=== PATIENT | female | born 1955 | race Caucasian/White ===

== ENCOUNTER 2016-08-22 02:34 | Inpatient (IN) ==
[2016-08-22] MEDS ORDERED: Naloxone 0.4 MG/ML INJ IVP PRN (05:19)
[2016-08-22] MEDS ORDERED: Acetaminophen 325 MG TABLET PO PRN (05:19)
[2016-08-22] MEDS ORDERED: Ondansetron 4 MG/2 ML VIAL IVP PRN (05:19)
[2016-08-22] MEDS ORDERED: *HR* Morphine 2 MG/ML SYRINGE IVP PRN (05:19)
[2016-08-22] MEDS ORDERED: Ipratropium/Albuterol Neb 3 ML IH SCH (05:30)
--- NOTE | 2016-08-22 05:41 | Internal Med History&Physical ---
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 Do not increase faster than 0.5 mEq per hour of sodium levels or more than 9 mEq in 24 hours Seizure, aspiration and fall precautions Send, TSH, cortisol, chest x-ray Order CK and lactic acid Cannot use desmopressin as psychogenic polydipsia is suspected Fluid restriction of 800 mL per day Omeprazole for GI prophylaxis and subcutaneous heparin for DVT prophylaxis. The patient will be admitted as inpatient, expected to stay more than 2 midnights. Full code. Time spent on this critical care assessment 40 minutes. High risk due to severe hyponatremia (2) Tobacco abuse Current visit: Yes Status: Acute Smoking cessation counseling given for 5 minutes. Nicotine patch (3) Bipolar 1 disorder Current visit: Yes Status: Acute Continue Lamictal, hold Invega as it can predispose to seizures (4) Leukocytosis Current visit: Yes Status: Acute Qualifiers: Leukocytosis type: unspecified Qualified Code(s): D72.829 - Elevated white blood cell count, unspecified (5) Generalized seizure Current visit: No Status: Acute Secondary to hyponatremia Internal Medicine - H&P: HPI Chief complaint: Low sodium and seizures Admitted From: Emergency Dept History of present illness: Ms. Roy is a 61 year old female with a past medical history of hyponatremia and seizures as a result of hyponatremia, hypertension, schizophrenia, bipolar disorder, tobacco use, COPD oxygen dependent went to [facility] emergency room after she had a seizure at home. The patient mentions that the seizure was not witnessed but she was found by her daughter. At [facility] the patient received a bolus of normal saline 1000 mL after finding out that her sodium was 110. No central line was placed and the patient was sent to the ICU at this hospital. White blood cell count was 11.5 chloride 74 glucose 139. The patient says that these happened last night at 7 PM, mentions that she drinks 2 L of T every day and does not eat much sodium on a daily basis. Actually she drank more than a liter of T in less than 2 hours last night right before these happened. Her CT of the head shows global brain atrophy with severe chronic small vessel ischemic disease and no hemorrhages. The patient is back to her baseline right now. Urine appears extremely clear, she is well hydrated and denies any pain, denies any incontinence or biting her tongue. Denies any muscle pain, denies taking any diuretic. Past Med Surg Social Fam HX - Past Medical History Medical history: COPD (Oxygen dependent), hypertension, seizures (Secondary to hyponatremia), other (Depression, schizophrenia, hyperlipidemia, tobacco use, bipolar disorder, multiple personalities, panic attacks and suicidal ideation in the past) - Past Surgical History Surgical History: other (Bladder tack, ablation) - Social History Smoking Status: Current every day smoker Packs per day: 1 Alcohol use: none Drug use: none - Additional Family History Additional family history: Father with myocardial infarction in his 60s Internal Medicine - H&P: Meds Lisinopril [Zestril] 10 mg PO DAILY 08/22/16 [History] Paliperidone [Invega] 12 mg PO DAILY 08/22/16 [History] lamoTRIgine [Lamictal Xr] 50 mg PO DAILY 08/22/16 [History] Allergies atorvastatin [From Lipitor] Allergy (Verified 08/22/16 00:38) See Comments unsure of reaction, states is allergic bupropion [From Wellbutrin] Allergy (Verified 08/22/16 00:38) Rash All Systems PM: A 10-system review of systems was performed and is negative for pertinent findings except as documented above in the HPI. Review of systems: Other systems out of the tent reviewed were negative - Head Head exam: Present: atraumatic, normocephalic - Eye Eye exam: Present: PERRL, conjuntiva pink, sclera anicteric Pupils: Present: PERRL - Neck Neck exam general surgery: Present: supple, trachea midline. Absent: lymphadenopathy - Respiratory Respiratory exam: Present: CTAB, rales (Bibasilar crackles). Absent: accessory muscle use, rhonchi, wheezes - Cardiovascular Cardiovascular exam: Present: RRR, +S1, +S2. Absent: diastolic murmur, gallop, rubs, systolic murmur - GI/Abdominal GI/Abdominal exam: Present: normal bowel sounds, soft, no peritoneal signs. Absent: distended, tenderness - Extremities Exam Extremities exam: Present: warm, radial pulses palpable and symetrical. Absent : calf tenderness, cyanotic, pedal edema - Neurological Exam Neurological exam: Present: CN II-XII intact, oriented X3, no focal deficits. Absent: pronater drift, facial droop, speech deficit - Skin Skin exam: Present: dry, intact Internal Med - H&P Results - Labs Labs: White blood cell count 11.5 hemoglobin 13.4 platelets 184 sodium 110 potassium 4.5 chloride 74 CO2 26 BUN 7 creatinine 0.89
[2016-08-22 05:55] LABS: Sodium, Urine < 20.0 mEq/L
[2016-08-22 05:57] LABS: Uric Acid 2.5 mg/dL (2.6-6.0)
[2016-08-22 06:18] LABS: Thyroid Stimulating Hormone 0.409 mcIU/mL (0.350-4.840)
[2016-08-22] MEDS ORDERED: D5% in Water 1,000 ML IVC ONE (06:22)
[2016-08-22] MEDS ORDERED: D5% in Water 1,000 ML IVC SCH (06:30)
[2016-08-22 06:31] LABS: Osmolality,Urine 53 mOsm/kg (300-1090)
--- NOTE | 2016-08-22 07:41 | Pulmonology Progress Note ---
<MarquezMaria Luz - Last Filed: 08/22/16 12:55> Date of Encounter: 08/22/16 Time of Encounter: 07:00 Assessment and Plan (1) Hyponatremia with excess extracellular fluid volume Current Visit: Yes Status: Acute Patient presented with Na of 110 and seizure secondary to hyponatremia Repeat Na at 05:00 was 117 and second repeat Na at 07:00 was 119 Monitor Na every 4 hours Continue D5W at 50ml/hr Fluid restriction of 800ml per day Patient reportedly has history of chronic hyponatremia We suspect psychogenic polydypsia Patient's random cortisol was 7.1 Urine osmolality 53 and urine sodium less than 20 ASSOCIATE GENETICS PROFESSOR: CT head demonstrated global brain atrophy and severe chronic small vessel ischemic disease. No evidence of hemorrhage. Seizure disorder-will continue with seizure precautions. Schizophrenia/Bipolar I-continue Lamictal 200mg qhs. Will hold Paliperidone given that it may cause seizure activity. Pulm: COPD-patient does have diffuse wheezing on exam. Continue treatment with supplemental O2, duonebs Q4HR, albuterol nebs Q4HR, Symbicort BID. Patient has hacking cough, will discontinue lisinopril. Cardiac: Patient hypertensive and tachycardic. Start metoprolol 12.5mg BID. Also, prn Lopressor and prn Hydralazine are ordered. Will avoid diuretics given that patient has hyponatremia and sodium has increased 9mEq/L in first six hours of her hospital stay. Stop lisinopril due to dry, hacking cough. GI/Fluids/Electrolytes/Hydration: Hyponatremia at 110 on admission, increased to 119 in six hours. Patient has been receiving D5W at 50mL/hr to prevent correction of sodium too quickly. Will discontinue D5W. Will continue Sodium checks every 6 hours. GI prophylaxis: Pepsid 20mg BID Renal: Renal function stable, Cr 0.89 ID: Leukocytosis of 11.5. No evidence of source of infection. Patient afebrile. Heme/Onc: Mild leukocytosis, continue to monitor Endocrine: Hyperglycemia with glucose of 167. Start Low-dose SS insulin, continue to monitor blood glucose Lines: All lines checked and without evidence of infection Skin: skin care to prevent pressure ulcers per nursing routine care Patient will transfer to [facility]. (2) Generalized seizure Current Visit: No Status: Acute Seizure secondary to hyponatremia Hold Paliperidone due to the risk of precipitating seizures Continue seizure, fall, and aspiration precautions (3) Leukocytosis Current Visit: Yes Status: Acute WBC 11.5 Patient afebrile Continue to monitor Qualifiers: Leukocytosis type: unspecified Qualified Code(s): D72.829 - Elevated white blood cell count, unspecified (4) COPD (chronic obstructive pulmonary disease) Current Visit: Yes Status: Acute Patient with COPD and oxygen dependent O2 saturation 98% on 2L Continue supplemental O2 Continue Duonebs IH, Albuterol IH, Symbicort BID Qualifiers: COPD type: unspecified COPD Qualified Code(s): J44.9 - Chronic obstructive pulmonary disease, unspecified (5) Cough Current Visit: Yes Status: Acute Patient has chronic dry hacking cough Lisinopril has been discontinued due to fact that this may be PARISH-inhibitor induced cough Guaifenesin with codeine for symptomatic relief (6) Schizophrenia Current Visit: Yes Status: Acute History of schizophrenia Continue Lamictal Continue to hold Paliperidone Qualifiers: Schizophrenia type: unspecified Qualified Code(s): F20.9 - Schizophrenia, unspecified (7) Bipolar 1 disorder Current Visit: Yes Status: Acute Continue home medication of Lamictal Hold Paliperidone (8) Tobacco abuse Current Visit: Yes Status: Acute Nicotine Patch (9) DVT prophylaxis Current Visit: Yes Status: Acute Heparin 8,000units SQ Subjective Principal diagnosis: Hyponatremia, Seizure Interval history: Patient admitted for hyponatremia with unwitnessed seizure secondary to hyponatremia. She states that she has had 8 prior such episodes. Objective PUL Vital signs: Last Vital Signs Temp 98.3 F 08/22/16 05:06 Pulse 97 08/22/16 06:00 Resp 20 08/22/16 06:00 BP 150/87 08/22/16 06:00 Pulse Ox 98 08/22/16 06:00 General appearance: no acute distress, other (chronic dry hacking cough) Eyes: nonicteric ENT: oropharynx moist Neck: supple, bruit (bilateral carotid bruit) Effort: mildly labored Auscultation: bilateral: wheezes (diffuse sonorous wheezing in all lung osman) Cardiovascular: other (Tachycardia at a rate of 100-115, Regular rhythm, No murmur appreciated) Gastrointestinal: normoactive bowel sounds, non-tender Integumentary: normal Extremities: no cyanosis, no edema, pulses normal Musculoskeletal: other (barrel chest, kyphotic thoracic spine) normal mental status, CN II-XII normal mood appropriate, affect normal Results - Laboratory Findings CBC and BMP: 08/22/16 10:54 Abnormal lab findings: Abnormal lab results Sodium 119 mEq/L (136-145) L* 08/22/16 06:57 POC Glucose 159 (58-89) H 08/22/16 05:07 Lactic Acid 2.8 mmol/L (0.5-2.2) H 08/22/16 05:34 Uric Acid 2.5 mg/dL (2.6-6.0) L 08/22/16 05:34 Creatine Kinase 632 Units/L (29-168) H 08/22/16 05:34 Urine Osmolality 53 mOsm/kg (300-1090) L 08/22/16 05:08 - Diagnostic Findings Chest x-ray: report reviewed, image reviewed - Clinical Findings Intake & Output: Intake & Output 08/21/16 08/21/16 08/22/16 15:59 23:59 07:59 Output Total 1400 / 1400 Balance -1400 / -1400 Weight 66.5 kg Consult Discharge Plan - Plan Referrals: Unassigned,Provider [Non-Partnered Physician] - <Lalo Campbell - Last Filed: 08/22/16 13:06> Date of Encounter: 08/22/16 Objective PUL Vital signs: Last Vital Signs Temp 98.1 F 08/22/16 12:54 Pulse 91 08/22/16 12:54 Resp 16 08/22/16 12:54 BP 122/59 08/22/16 12:54 Pulse Ox 97 08/22/16 12:54 Results - Laboratory Findings CBC and BMP: 08/22/16 10:54 Abnormal lab findings: Abnormal lab results Sodium 121 mEq/L (136-145) L 08/22/16 10:54 POC Glucose 115 (58-89) H 08/22/16 11:18 Uric Acid 2.5 mg/dL (2.6-6.0) L 08/22/16 05:34 Ionized Calcium 1.08 mmol/L (1.15-1.35) L 08/22/16 10:54 Creatine Kinase 632 Units/L (29-168) H 08/22/16 05:34 Urine Osmolality 53 mOsm/kg (300-1090) L 08/22/16 05:08 - Clinical Findings Intake & Output: Intake & Output 08/21/16 08/22/16 08/22/16 23:59 07:59 15:59 Intake Total 480 / 480 Output Total 1400 / 1400 1000 / 1000 Balance -1400 / -1400 -520 / -520 Weight 66.5 kg - Attending Attestation I examined this patient and my medical decision-making was reviewed with the BOOKING OFFICER/PA/Advanced Practice Nurse/Resident Physician. I agree with the documented findings, disposition and treatment plan as described except to the extent set forth below. Patient seen and examined. Labs, radiology, chart personally reviewed. Agree with resident's history and physical, assessment, plan with following comments: ASSOCIATE GENETICS PROFESSOR: Patient follows commands, no evidence of any seizure activities and this time. Pulmonary: Acceptable oxygenation and ventilation. No evidence of COPD exacerbation and patient was advised to quit smoking. CT chest to make sure there is no abnormalities since she has history of smoking and now with hyponatremia. Cardiovascular: stable GI: Nutrition per dietary and GI prophylaxis per routine Heme: DVT prophylaxis per routine Renal; urine out put and renal funtion reviewed. Monitor correction of sodium level. Suspect this is psychogenic Endorcine: blood glucose is monitored Lines: all lines checked and no evidence of infections Skin: skin care to prevent pressure ulcers per nursing routine care Patient is stable to be transferred to the floor
[2016-08-22] MEDS ORDERED: Albuterol 2.5 MG/3 ML NEBULIZER IH SCH (07:45)
[2016-08-22] MEDS ORDERED: Albuterol 2.5 MG/3 ML NEBULIZER IH PRN ×2 (07:53→08:12)
[2016-08-22] MEDS: Ipratropium/Albuterol Neb 3 ML IH SCH ×5 (07:59→23:22)
[2016-08-22] MEDS: Famotidine 20 MG TABLET PO SCH ×2 (08:37→21:03)
[2016-08-22] MEDS: Nicotine 21 MG PATCH.TD24 TD SCH (08:38)
[2016-08-22] MEDS: *HR* Heparin 5,000 UNIT/ML VIAL SQ SCH ×3 (08:38→23:59)
[2016-08-22] MEDS ORDERED: *HR* Metoprolol 5 MG/5 ML VIAL IVP PRN (08:57)
[2016-08-22] MEDS ORDERED: (Lamotrigine [Lamictal Xr] 50 MG) PO SCH (09:00)
[2016-08-22] MEDS: GuaiFENesin/Codeine Oral Soln 5 ML UDC PO PRN ×3 (09:25→23:59)
[2016-08-22] MEDS ORDERED: Dextrose Gel 15 GM PO PRN ×2 (10:21)
[2016-08-22] MEDS ORDERED: D5% in Water 1,000 ML IVC PRN (10:21)
[2016-08-22] MEDS ORDERED: *HR* Dextrose 50 % in Water (Syg) 50 ML SYRINGE IVP PRN (10:21)
[2016-08-22 11:11] LABS: Ionized Calcium 1.08 mmol/L (1.15-1.35)
[2016-08-22 11:15] LABS: Magnesium 1.6 mg/dL (1.6-2.6); Phosphorous 3.5 mg/dL (2.3-4.7)
[2016-08-22] MEDS: Insulin LISPRO 300 UNITS/3 ML VIAL SQ SCH ×3 (11:24→21:03)
[2016-08-22] MEDS: Budesonide/Formoterol 160/4.5 MDI IH SCH ×2 (11:35→23:22)
[2016-08-22] MEDS ORDERED: Magnesium Sulfate 1 GM in D5% in Water 100 ML IVPB ONE (12:36)
[2016-08-22] MEDS ORDERED: Calcium Gluconate 1,000 MG in D5% in Water 100 ML IVPB ONE (12:36)
[2016-08-22] MEDS: lamoTRIgine 100 MG TABLET PO SCH (21:02)
[2016-08-22] MEDS ORDERED: traZODone 50 MG TABLET PO ONE (23:24)
[2016-08-23] MEDS: Ipratropium/Albuterol Neb 3 ML IH SCH ×6 (04:18→23:58)
[2016-08-23] MEDS: GuaiFENesin/Codeine Oral Soln 5 ML UDC PO PRN ×3 (06:40→22:35)
[2016-08-23 06:47] LABS: Basophils % 0.4 %; Eosinophils % 0.1 %; Hematocrit 34.9 % (35.3-44.9); Hemoglobin 12.3 g/dL (11.5-15.4); Immature Granulocytes % 0.7 % (0-4); Lymphocytes # 2.2 K/mcL (0.6-4.6); Lymphocytes % 29.4 %; Mean Corpuscular HGB Conc 35.2 g/dL (31.6-35.5); Mean Corpuscular Hemoglobin 30.8 pg (28.0-33.3); Mean Corpuscular Volume 87.5 fL (83.0-100.0); Mean Platelet Volume 10.5 fL (9.4-12.4); Monocytes # 0.8 K/mcL (0.0-1.3); Monocytes % 10.5 %; Neutrophils # 4.4 K/mcL (1.6-8.9); Platelet Count 190 K/mcL (140-400); Red Blood Count 3.99 M/mcL (3.82-4.97); Red Cell Distribution Width 12.6 % (11.5-14.5); Segmented Neutrophils % 58.9 %
[2016-08-23 06:48] LABS: Ionized Calcium 1.09 mmol/L (1.15-1.35)
[2016-08-23] MEDS: Budesonide/Formoterol 160/4.5 MDI IH SCH ×2 (07:51→19:36)
[2016-08-23] MEDS: Famotidine 20 MG TABLET PO SCH (08:37)
[2016-08-23] MEDS: Nicotine 21 MG PATCH.TD24 TD SCH (08:39)
[2016-08-23] MEDS: Insulin LISPRO 300 UNITS/3 ML VIAL SQ SCH ×4 (08:39→22:40)
[2016-08-23] MEDS: *HR* Heparin 5,000 UNIT/ML VIAL SQ SCH ×2 (08:40→16:24)
[2016-08-23] MEDS ORDERED: D5% in Water 1,000 ML IVC SCH ×2 (13:15→19:45)
--- NOTE | 2016-08-23 14:58 | Internal Med Progress Note ---
Date of Encounter: 08/23/16 Time of Encounter: 10:00 - Assessment and plan (1) Generalized seizure Current Visit: No Status: Acute Assessment and plan: patient has seizure previously due to low sodium level. no further seizure. We will continue to correct hyponatremia. Closely monitor patient. (2) Hyponatremia with excess extracellular fluid volume Current Visit: Yes Status: Acute Assessment and plan: Will place patient on fluid restriction. Closely monitor her sodium level. Avoid fast correction, goal is less than 8 mEq per 24 hours. (now on D5 because 9 mEq increased in last 24 hours). (3) Tobacco abuse Current Visit: Yes Status: Acute Assessment and plan: continue nicotine patch (4) Bipolar 1 disorder Current Visit: Yes Status: Acute Assessment and plan: continue home medications (5) DVT prophylaxis Current Visit: Yes Status: Acute Assessment and plan: heparin subcutaneously (6) Schizophrenia Current Visit: Yes Status: Acute Assessment and plan: continue home medications Qualifiers: Schizophrenia type: unspecified Qualified Code(s): F20.9 - Schizophrenia, unspecified (7) COPD (chronic obstructive pulmonary disease) Current Visit: Yes Status: Acute Assessment and plan: continue home medications Qualifiers: COPD type: unspecified COPD Qualified Code(s): J44.9 - Chronic obstructive pulmonary disease, unspecified (8) Hypertension Current Visit: Yes Status: Acute Assessment and plan: continue home medications Qualifiers: Hypertension type: essential hypertension Qualified Code(s): I10 - Essential (primary) hypertension (9) Pulmonary nodules Current Visit: Yes Status: Acute Assessment and plan: needs to follow-up as outpatient per protocol (10) Adrenal adenoma Current Visit: Yes Status: Acute Assessment and plan: incidentally finding from CT scan. 1.8 cm. seems nonfunctional. need to follow up as outpatient in 3-6 months. Qualifiers: Laterality: right Qualified Code(s): D35.01 - Benign neoplasm of right adrenal gland - Time Spent With Patient 25 - 35 minutes - Subjective Interval history: patient is a 61-year-old female admitted for seizure and hyponatremia. Past medical history is significant for COPD, hypertension, multiple psych issues. patient was seen and examined. Feels fine. No further seizure. Mild nonproductive cough. vital signs stable. Sodium level 126 today, will continue D5 + water 2 to the fast correction. closely monitor sodium level. - Constitutional Vitals: Temp Pulse Resp BP Pulse Ox 98.2 F 81 16 151/78 100 08/23/16 12:41 08/23/16 12:41 08/23/16 12:41 08/23/16 12:41 08/23/16 12:41 General appearance: Present: A&O X 3, no acute distress, answers questions appropriately - Head Head exam: Present: atraumatic, normocephalic - Eye Eye exam: Present: PERRL, conjuntiva pink, sclera anicteric Pupils: Present: PERRL - Neck Neck exam general surgery: Present: supple, trachea midline. Absent: lymphadenopathy - Respiratory Respiratory exam: Present: CTAB. Absent: accessory muscle use, rales, rhonchi, wheezes - Cardiovascular Cardiovascular exam: Present: RRR, +S1, +S2. Absent: diastolic murmur, gallop, rubs, systolic murmur - GI/Abdominal GI/Abdominal exam: Present: normal bowel sounds, soft, no peritoneal signs. Absent: distended, tenderness - Extremities Exam Extremities exam: Present: warm, radial pulses palpable and symetrical. Absent : calf tenderness, cyanotic, pedal edema - Neurological Exam Neurological exam: Present: CN II-XII intact, oriented X3, no focal deficits. Absent: pronater drift, facial droop, speech deficit - Skin Skin exam: Present: dry, intact Internal Medicine: Result - Labs CBC & Chem 7: 08/23/16 06:07 08/23/16 13:46 Labs: Short CBC 08/23/16 Range/Units 06:07 WBC 7.5 (4.3-11.1) K/mcL Hgb 12.3 (11.5-15.4) g/dL Hct 34.9 L (35.3-44.9) % Plt Count 190 (140-400) K/mcL Neutrophils # 4.4 (1.6-8.9) K/mcL BMP 08/22/16 08/22/16 08/23/16 17:58 22:10 06:07 Sodium 124 L 124 L 126 L 08/23/16 13:46 Sodium 126 L - Impressions Impressions Chest X-Ray 08/23/16 10:19 IMPRESSION: Stable chest without acute cardiopulmonary process. D/ / Sharif Garcia MD / Sharif Garcia MD Interpreting Provider: Sharif Garcia MD Hip X-Ray 08/23/16 10:19 IMPRESSION: Mild degenerative changes are seen in the hip joint without acute osseous fracture. D/ / Sharif Garcia MD / Sharif Garcia MD Interpreting Provider: Sharif Garcia MD Consult Discharge Plan - Plan Referrals: Unassigned,Provider [Non-Partnered Physician] -
[2016-08-23] MEDS ORDERED: hydrOXYzine pamoate 25 MG CAPSULE PO PRN (15:07)
[2016-08-23] MEDS ORDERED: traZODone 50 MG TABLET PO PRN (15:07)
[2016-08-23] MEDS: rOPINIRole 1 MG TABLET PO SCH (22:34)
[2016-08-23] MEDS: lamoTRIgine 100 MG TABLET PO SCH (22:34)
[2016-08-24] MEDS: *HR* Heparin 5,000 UNIT/ML VIAL SQ SCH ×3 (01:19→17:55)
[2016-08-24 03:02] LABS: Basophils % 0.3 %; Eosinophils % 0.1 %; Hematocrit 32.7 % (35.3-44.9); Hemoglobin 11.2 g/dL (11.5-15.4); Immature Granulocytes % 0.7 % (0-4); Immature Platelets 4.4 % (1.1-6.1); Lymphocytes # 2.3 K/mcL (0.6-4.6); Lymphocytes % 25.7 %; Mean Corpuscular HGB Conc 34.3 g/dL (31.6-35.5); Mean Corpuscular Hemoglobin 30.7 pg (28.0-33.3); Mean Corpuscular Volume 89.6 fL (83.0-100.0); Mean Platelet Volume 9.5 fL (9.4-12.4); Monocytes # 0.9 K/mcL (0.0-1.3); Monocytes % 10.3 %; Neutrophils # 5.6 K/mcL (1.6-8.9); Platelet Count 226 K/mcL (140-400); Red Blood Count 3.65 M/mcL (3.82-4.97); Red Cell Distribution Width 12.8 % (11.5-14.5); Segmented Neutrophils % 62.9 %
[2016-08-24 03:15] LABS: BUN/Creatinine Ratio 10 (6-26); Blood Urea Nitrogen 8 mg/dL (7-20); Calcium 8.6 mg/dL (8.6-10.8); Carbon Dioxide 31 mEq/L (19-29); Chloride 91 mEq/L (98-109); Glucose 106 mg/dL (70-99); Osmolality,Calculated 265 (280-300); Potassium 4.3 mEq/L (3.5-4.5); Sodium 128 mEq/L (136-145); eGFR For African Americans > 60 (> 60); eGFR For Non-African Americans > 60 (> 60)
[2016-08-24] MEDS: Ipratropium/Albuterol Neb 3 ML IH SCH ×6 (04:06→23:18)
[2016-08-24] MEDS: Budesonide/Formoterol 160/4.5 MDI IH SCH ×2 (07:37→19:59)
[2016-08-24] MEDS: Insulin LISPRO 300 UNITS/3 ML VIAL SQ SCH ×3 (09:59→17:53)
[2016-08-24] MEDS: Nicotine 21 MG PATCH.TD24 TD SCH (10:04)
[2016-08-24] MEDS: lamoTRIgine 100 MG TABLET PO SCH ×2 (10:04→21:01)
--- NOTE | 2016-08-24 14:23 | Internal Med Progress Note ---
Date of Encounter: 08/24/16 Time of Encounter: 09:00 - Assessment and plan (1) Generalized seizure Current Visit: No Status: Acute Assessment and plan: patient has seizure previously due to low sodium level. no further seizure. We will continue to correct hyponatremia. Closely monitor patient. (2) Hyponatremia with excess extracellular fluid volume Current Visit: Yes Status: Acute Assessment and plan: Will place patient on fluid restriction. Closely monitor her sodium level. Avoid fast correction, goal is less than 8 mEq per 24 hours. (3) Tobacco abuse Current Visit: Yes Status: Acute Assessment and plan: continue nicotine patch (4) Bipolar 1 disorder Current Visit: Yes Status: Acute Assessment and plan: continue home medications (5) DVT prophylaxis Current Visit: Yes Status: Acute Assessment and plan: heparin subcutaneously (6) Schizophrenia Current Visit: Yes Status: Acute Assessment and plan: continue home medications Qualifiers: Schizophrenia type: unspecified Qualified Code(s): F20.9 - Schizophrenia, unspecified (7) COPD (chronic obstructive pulmonary disease) Current Visit: Yes Status: Acute Assessment and plan: continue home medications. patient has home oxygen already Qualifiers: COPD type: unspecified COPD Qualified Code(s): J44.9 - Chronic obstructive pulmonary disease, unspecified (8) Hypertension Current Visit: Yes Status: Acute Assessment and plan: continue home medications Qualifiers: Hypertension type: essential hypertension Qualified Code(s): I10 - Essential (primary) hypertension (9) Pulmonary nodules Current Visit: Yes Status: Acute Assessment and plan: needs to follow-up as outpatient per protocol (10) Adrenal adenoma Current Visit: Yes Status: Acute Assessment and plan: incidentally finding from CT scan. 1.8 cm. seems nonfunctional. need to follow up as outpatient in 3-6 months. Qualifiers: Laterality: right Qualified Code(s): D35.01 - Benign neoplasm of right adrenal gland - Time Spent With Patient 25 - 35 minutes - Subjective Interval history: patient is a 61-year-old female admitted for seizure and hyponatremia. Past medical history is significant for COPD, hypertension, multiple psych issues. patient was seen and examined. Feels fine. No further seizure. Mild nonproductive cough. vital signs stable, CXR negative. Sodium level 128 today, D/C D5 + water, continue fluid restriction. closely monitor sodium level. - Constitutional Vitals: Temp Pulse Resp BP Pulse Ox 98.1 F 73 16 113/49 96 08/24/16 11:56 08/24/16 11:56 08/24/16 11:56 08/24/16 11:56 08/24/16 11:56 General appearance: Present: A&O X 3, no acute distress, answers questions appropriately - Head Head exam: Present: atraumatic, normocephalic - Eye Eye exam: Present: PERRL, conjuntiva pink, sclera anicteric Pupils: Present: PERRL - Neck Neck exam general surgery: Present: supple, trachea midline. Absent: lymphadenopathy - Respiratory Respiratory exam: Present: CTAB, wheezes (scattered wheezes bilaterally). Absent: accessory muscle use, rales, rhonchi - Cardiovascular Cardiovascular exam: Present: RRR, +S1, +S2. Absent: diastolic murmur, gallop, rubs, systolic murmur - GI/Abdominal GI/Abdominal exam: Present: normal bowel sounds, soft, no peritoneal signs. Absent: distended, tenderness - Extremities Exam Extremities exam: Present: warm, radial pulses palpable and symetrical. Absent : calf tenderness, cyanotic, pedal edema - Neurological Exam Neurological exam: Present: CN II-XII intact, oriented X3, no focal deficits. Absent: pronater drift, facial droop, speech deficit - Skin Skin exam: Present: dry, intact Internal Medicine: Result - Labs CBC & Chem 7: 08/24/16 02:53 08/24/16 02:53 Labs: Short CBC 08/24/16 Range/Units 02:53 WBC 8.8 (4.3-11.1) K/mcL Hgb 11.2 L (11.5-15.4) g/dL Hct 32.7 L (35.3-44.9) % Plt Count 226 (140-400) K/mcL Neutrophils # 5.6 (1.6-8.9) K/mcL BMP 08/23/16 08/23/16 08/24/16 17:39 21:47 02:53 Sodium 129 L 129 L 127 L Potassium Chloride Carbon Dioxide BUN Creatinine Glucose Calcium 08/24/16 02:53 Sodium 128 L Potassium 4.3 Chloride 91 L D Carbon Dioxide 31 H BUN 8 Creatinine 0.81 Glucose 106 H Calcium 8.6 Consult Discharge Plan - Plan Referrals: Unassigned,Provider [Non-Partnered Physician] -
[2016-08-24] MEDS: GuaiFENesin/Codeine Oral Soln 5 ML UDC PO PRN ×2 (15:31→23:10)
[2016-08-24] MEDS ORDERED: Famotidine 20 MG TABLET PO SCH (21:00)
[2016-08-24] MEDS: rOPINIRole 1 MG TABLET PO SCH (21:01)
[2016-08-25] MEDS: *HR* Heparin 5,000 UNIT/ML VIAL SQ SCH ×2 (00:19→11:05)
[2016-08-25] MEDS: Insulin LISPRO 300 UNITS/3 ML VIAL SQ SCH ×2 (01:59→11:05)
[2016-08-25] MEDS: Ipratropium/Albuterol Neb 3 ML IH SCH ×3 (03:55→10:43)
[2016-08-25 07:21] VITALS: BP 146/63
[2016-08-25] MEDS: Budesonide/Formoterol 160/4.5 MDI IH SCH (08:57)
[2016-08-25] MEDS: lamoTRIgine 100 MG TABLET PO SCH (11:05)
[2016-08-25] MEDS: Nicotine 21 MG PATCH.TD24 TD SCH (11:06)
--- NOTE | 2016-08-25 11:43 | Discharge Summary ---
Date of Encounter: 08/25/16 Time of Encounter: 10:00 - Discharge Diagnosis (1) Generalized seizure Priority: Primary Status: Acute (2) Hyponatremia with excess extracellular fluid volume Priority: Primary Status: Acute (3) Tobacco abuse Priority: Secondary Status: Acute (4) Bipolar 1 disorder Priority: Secondary Status: Acute (5) DVT prophylaxis Priority: Secondary Status: Acute (6) Schizophrenia Priority: Secondary Status: Acute Qualifiers: Schizophrenia type: unspecified Qualified Code(s): F20.9 - Schizophrenia, unspecified (7) COPD (chronic obstructive pulmonary disease) Priority: Secondary Status: Acute Qualifiers: COPD type: unspecified COPD Qualified Code(s): J44.9 - Chronic obstructive pulmonary disease, unspecified (8) Hypertension Priority: Secondary Status: Acute Qualifiers: Hypertension type: essential hypertension Qualified Code(s): I10 - Essential (primary) hypertension (9) Pulmonary nodules Priority: Secondary Status: Acute (10) Adrenal adenoma Priority: Secondary Status: Acute Qualifiers: Laterality: right Qualified Code(s): D35.01 - Benign neoplasm of right adrenal gland - Discharge Medications Prescriptions: Budesonide/Formoterol 160/4.5 [Symbicort 160/4.5] 2 puff IH BIDR #1 inhaler Nicotine Patch [Nicoderm] 21 mg TD DAILY #14 patch.td24 Home Medications: Albuterol Sulfate [Ventolin Hfa] 2 puff IH Q4-6H PRN 08/22/16 [History] Atorvastatin [Lipitor] 40 mg PO HS 08/22/16 [History] Lisinopril [Zestril] 10 mg PO DAILY 08/22/16 [History] Paliperidone [Paliperidone ER] 9 mg PO HS 08/22/16 [History] Trazodone HCl 300 - 400 mg PO HS PRN 08/22/16 [History] hydrOXYzine HCl [Hydroxyzine HCl] 50 mg PO HS PRN 08/22/16 [History] lamoTRIgine [Lamotrigine] 200 mg PO DAILY 08/22/16 [History] rOPINIRole [Requip] 1 mg PO HS 08/22/16 [History] Budesonide/Formoterol 160/4.5 [Symbicort 160/4.5] 2 puff IH BIDR #1 inhaler [Rx] Nicotine Patch [Nicoderm] 21 mg TD DAILY #14 patch.td24 08/25/16 [Rx] Allergies/Adverse Reactions: Allergies bupropion [From Wellbutrin] Allergy (Verified 08/22/16 00:38) Rash atorvastatin [From Lipitor] Adverse Reaction (Verified 08/22/16 10:14) See Comments unsure of reaction, states is allergic Procedures/tests Complete & Pending: Procedures Performed prior 72 hours Category Date Time Status CT chest w/o contrast [CT chest wo con] [CT] Routine Cat Scan 08/22/16 11:11 Completed - Notes to Outpatient Provider 1. Pt has incidentally finding of pulmonary nodules, need repeat CT chest per protocol in 12 months. 2. Pt also has incidental finding of right adrenal adenoma, please follow up as outpatient. Date of admission: 08/22/16 05:19 Primary care physician: PCP NO Consults: 08/22/16 05:33 Consult to Nutrition [CONS] Routine Comment: Consulting Provider: NUTRITION Reason for Dietary Consult: MST Score 08/22/16 05:53 Consult to Pulmonology [CONS] Routine Consulting Provider: [facility] Gabrielle Reason for Consult: severe hyponatremia, seizures Call Completed: No 08/23/16 14:22 Consult to [place] [CONS] Routine Reason for SW Consult: Mental health needs 08/25/16 08:50 Consult to Physical Therapy [CONS] Stat Comment: Evaluate, develop and implement POC Reason for Consult: evaluate for home needs 08/25/16 08:51 Consult to Occupational Therapy [CONS] Stat Comment: Evaluate, develop and implement POC Reason for Consult: assess for home needs, groin pain Discharging clinician: Bob Campbell Anticipated date of discharge: 08/25/16 - Patient Status Disposition: Home Health Service Condition: Fair Functional capacity at discharge: independent ambulation Overall status at discharge: patient is back to baseline - Discharge Instructions Instructions: Chronic Obstructive Pulmonary Disease (DC), Chronic Hypertension (DC), Cigarette Smoking and Your Health, Maintenance Plumber (GEN) Follow Up With: Unassigned,Provider [Non-Partnered Physician] - - Diet and Activity Activity: increase activity as tolerated Diet: diabetic diet (Fluid restriction 1500 ml per day) Interval History: Ms. Roy is a 61 year old female with a past medical history of hyponatremia and seizures as a result of hyponatremia, hypertension, schizophrenia, bipolar disorder, tobacco use, COPD oxygen dependent went to [facility] emergency room after she had a seizure at home. The patient mentions that the seizure was not witnessed but she was found by her daughter. At [facility] the patient received a bolus of normal saline 1000 mL after finding out that her sodium was 110. No central line was placed and the patient was sent to the ICU at this hospital. White blood cell count was 11.5 chloride 74 glucose 139. The patient says that these happened last night at 7 PM, mentions that she drinks 2 L of T every day and does not eat much sodium on a daily basis. Actually she drank more than a liter of T in less than 2 hours last night right before these happened. Her CT of the head shows global brain atrophy with severe chronic small vessel ischemic disease and no hemorrhages. The patient is back to her baseline right now. Urine appears extremely clear, she is well hydrated and denies any pain, denies any incontinence or biting her tongue. Denies any muscle pain, denies taking any diuretic. Hospital course: Ms. Roy is a 61 year old female admitted for seizure and hyponatremia. Patient has history of seizure which is caused by hyponatremia. her hyponatremia is caused by polydipsia because patient is taking psych med. Patient was treated with fluid restriction,and closely monitor her sodium level. her sodium level increased gradually to 131 today. Patient feels fine. Will discharge patient home and continue fluid restriction. Patient will follow- up with PCP as outpatient. i saw and examined the patient today. She is awake alert, oriented 3. Vitals are stable. Patient can walk around in the room. discussed with patient,she agrees to decrease drinking at home. Patient was discharged home with home health, and follow-up with PCP as outpatient. Time spent discussing smoking cessation with patient: more than 10 minutes - Time Spent with Patient Total time spent providing and/or coordinating discharge services: 40 min Greater than 30 minutes - Constitutional Vitals: Temp Pulse Resp BP Pulse Ox 98.1 F 76 16 146/63 96 08/25/16 07:18 08/25/16 07:18 08/25/16 10:44 08/25/16 07:18 08/25/16 10:44 General appearance: Present: A&O X 3, no acute distress, answers questions appropriately - Head Head exam: Present: atraumatic, normocephalic - Eye Eye exam: Present: PERRL, conjuntiva pink, sclera anicteric Pupils: Present: PERRL - Neck Neck exam general surgery: Present: supple, trachea midline. Absent: lymphadenopathy - Respiratory Respiratory exam: Present: CTAB. Absent: accessory muscle use, rales, rhonchi, wheezes - Cardiovascular Cardiovascular exam: Present: RRR, +S1, +S2. Absent: diastolic murmur, gallop, rubs, systolic murmur - GI/Abdominal GI/Abdominal exam: Present: normal bowel sounds, soft, no peritoneal signs. Absent: distended, tenderness - Extremities Exam Extremities exam: Present: warm, radial pulses palpable and symetrical. Absent : calf tenderness, cyanotic, pedal edema - Neurological Exam Neurological exam: Present: CN II-XII intact, oriented X3, no focal deficits. Absent: pronater drift, facial droop, speech deficit - Skin Skin exam: Present: dry, intact
--- NOTE | 2016-08-25 12:01 | Physician Discharge Referral ---
Home Health/Hosp Referral Info Transfer to: Home Health Provider in Charge Post Discharge: PCP - Diagnosis (1) Generalized seizure Status: Acute (2) Hyponatremia with excess extracellular fluid volume Status: Acute (3) Tobacco abuse Status: Acute (4) Bipolar 1 disorder Status: Acute (5) DVT prophylaxis Status: Acute (6) Schizophrenia Status: Acute (7) COPD (chronic obstructive pulmonary disease) Status: Acute (8) Hypertension Status: Acute (9) Pulmonary nodules Status: Acute (10) Adrenal adenoma Status: Acute - Respiratory Orders Oxygen / L per min (2) Smoking Cessation: Smoking cessation has been advised. For more information, call the [place] Tobacco Quit Line at 8-888-HWLC-NOW. - Diet/Nutrition Diet/Nutrition Orders: No Concentrated Sweets - Activity Activity Orders: Chair - Services Needed Following services are medically necessary services: Nursing, Home Health Aide, Physical Therapy, Occupational Therapy - Transfer Medications Prescriptions: Budesonide/Formoterol 160/4.5 [Symbicort 160/4.5] 2 puff IH BIDR #1 inhaler Nicotine Patch [Nicoderm] 21 mg TD DAILY #14 patch.td24 Home Medications: Albuterol Sulfate [Ventolin Hfa] 2 puff IH Q4-6H PRN 08/22/16 [History] Atorvastatin [Lipitor] 40 mg PO HS 08/22/16 [History] Lisinopril [Zestril] 10 mg PO DAILY 08/22/16 [History] Paliperidone [Paliperidone ER] 9 mg PO HS 08/22/16 [History] Trazodone HCl 300 - 400 mg PO HS PRN 08/22/16 [History] hydrOXYzine HCl [Hydroxyzine HCl] 50 mg PO HS PRN 08/22/16 [History] lamoTRIgine [Lamotrigine] 200 mg PO DAILY 08/22/16 [History] rOPINIRole [Requip] 1 mg PO HS 08/22/16 [History] Budesonide/Formoterol 160/4.5 [Symbicort 160/4.5] 2 puff IH BIDR #1 inhaler [Rx] Nicotine Patch [Nicoderm] 21 mg TD DAILY #14 patch.td24 08/25/16 [Rx] Allergies/Adverse Reactions: Allergies bupropion [From Wellbutrin] Allergy (Verified 08/22/16 00:38) Rash atorvastatin [From Lipitor] Adverse Reaction (Verified 08/22/16 10:14) See Comments unsure of reaction, states is allergic Certification: Further, I certify that my clinical findings support that this patient is homebound (i.e. absences from home require considerable and taxing effort and are for medical reasons or christianity services or infrequently or short duration when for other reasons) because: Homebound Reason: Patient requires assistance of a person or device to safely leave home Attestation: My signature below is to certify that this patient is under my care and that I, or nurse practitioner, or a physician's department assistant working with me, has a face-to -face encounter with this patient.
== END 2016-08-25 12:45 | disposition home health service (06) | DRG 641 ==
LOC: ICNU → SUATTDRO 05:19 → 2NENU 12:46
PROVIDERS: ADMIT Internal Medicine; ATTEND Internal Medicine